=== PATIENT | female | born 1990 | race Caucasian/White ===

== ENCOUNTER 2022-01-03 14:45 | Emergency (ER) | payer OTHER ==
[2022-01-03] MEDS ORDERED: ACETAMINOPHEN 325 MG TABLET (FP) PO ONE (15:15)
[2022-01-03] MEDS ORDERED: amLODIPine BESYLATE 5 MG TABLET (FP) PO ONE (15:15)
[2022-01-03 15:21] VITALS: BP 180/100; PULSE 70; RESP 16; TEMP 99.5; BMI 43.9
[2022-01-03] MEDS ORDERED: ACETAMINOPHEN 500 MG TABLET (FP) ONE (15:28)
[2022-01-03] MEDS ORDERED: amLODIPine BESYLATE 5 MG TABLET (FP) ONE (15:28)
== END 2022-01-03 15:35 | disposition home or self-care (01) ==
LOC: FER 14:45
DX: R05.1 Acute cough (principal); R03.0 Elevated blood-pressure reading, without diagnosis of hypertension
CPT/HCPCS: 0241U-QW; 99283-25

== ENCOUNTER 2022-05-15 12:12 | Emergency (ER) | payer OTHER ==
[2022-05-15 12:35] VITALS: BP 137/99; PULSE 98; RESP 18; TEMP 99; BMI 43.0
== END 2022-05-15 13:20 | disposition home or self-care (01) ==
LOC: FER 12:12
DX: M54.2 Cervicalgia (principal)
CPT/HCPCS: 0241U-QW; 99283-25